=== PATIENT | female | born 1990 | race Caucasian/White ===

== ENCOUNTER 2020-08-13 17:00 | Emergency (ER) | payer OTHER ==
[~2020-08-13] VITALS: Ht 170.2 cm; Wt 68.2 kg
[2020-08-13 17:18] VITALS: BP 140/87
--- NOTE | 2020-08-13 17:29 | PHYS DOC ---
Past History Past Medical History: Anxiety, Depression Past Surgical History: No Surgical History Alcohol Use: None Adult General Chief Complaint Chief Complaint: CHEST PAIN HPI HPI Patient is a 29-year-old female with past medical history of anxiety and depression presents for chest pain. Onset was this morning while at rest shortly after waking up. It is focal to left border of the sternum over fifth rib and exquisitely tender to palpation. It has been ongoing all day. Nothing known makes better, certain movements and deep breaths in and out make worse. Pain is sharp without radiation and with palpation is 10 out of 10 in severity. Patient denies any other associated symptoms. Patient denies any fever, COVID- 19 contact, hemoptysis, shortness of breath, recent long distance travel, exogenous estrogen use, prolonged sedentary state, history of blood clot and/or DVT, is never passed out while playing sports, negative family history for cardiac abnormalities, is not a smoker Review of Systems Review of Systems Fourteen body systems of review of systems have been reviewed. See HPI for pertinent positives and negative responses, other barrera all other systems are negative, non-pertinent or non-contributory Allergies Allergies Allergies Coded Allergies Type Severity Reaction Last Updated Verified No Known Drug Allergies 08/13/20 No Physical Exam Physical Exam Constitutional: Well developed, well nourished, no acute distress, non-toxic appearance. HENT: Normocephalic, atraumatic, bilateral external ears normal, oropharynx moist, no oral exudates, nose normal. Eyes: PERRLA, EOMI, conjunctiva normal, no discharge. Neck: Normal range of motion, no tenderness, supple, no stridor. Cardiovascular: Heart rate regular, sinus rhythm, no murmurs rubs or gallops. Attachment of fifth rib to sternal border painful to palpation without any palpable abnormalities, reproducible pain which is same pain prompting her visit today Lungs & Thorax: Bilateral breath sounds clear to auscultation Abdomen: Bowel sounds normal, soft, no tenderness, no masses, no pulsatile masses. Nonsurgical abdomen, no peritoneal signs Skin: Warm, dry, no erythema, no rash. Back: No tenderness, no CVA tenderness. Extremities: No tenderness, no cyanosis, no clubbing, ROM intact, no edema. Neurologic: Alert and oriented X 3, grossly normal motor & sensory function, no focal deficits noted. Psychologic: Affect normal, judgement normal, mood normal. Current Patient Data Vital Signs Vital Signs Date Time Temp Pulse Resp B/P (MAP) Pulse Ox O2 Delivery O2 Flow Rate FiO2 08/13/20 17:18 97.8 102 16 140/87 (104) 100 Room Air EKG EKG EKG ordered and interpreted by myself at 1732 hrs. as sinus rhythm at 78 bpm, unremarkable intervals, no axis deviation, no ischemic findings, no STEMI Radiology/Procedures Radiology/Procedures [] Heart Score HEART Score for Chest Pain: HEART Score for Chest Pain Response (Comments) Value History Slighlty/Non-Suspicious 0 ECG Normal 0 Age < 45 0 Risk Factors No Risk Factors 0 Total 0 Risk Factors: Risk Factors: DM, Current or recent (<one month) smoker, HTN, HLP, family history of CAD, obesity. Risk Scores: Risk Factors: DM, Current or recent (<one month) smoker, HTN, HLP, family history of CAD, obesity. Course & Med Decision Making Course & Med Decision Making After thorough history and physical examination and EKG, I feel patient is low risk for any concerning emergent and/or surgical abnormalities I discussed most likely diagnosis of musculoskeletal chest pain which is likely costochondritis. Patient was given 500 mg of naproxen, she has taken this in the past and tolerated it well without issues Patient does not have PCP in local area, I discussed with her the importance of establishing with someone locally for continuity of care in outpatient setting. She was provided with resource sheet for her to establish I advised continued supportive care consisting of prescribed Naprosyn and heating pad for 15 minutes 4 times daily. I advised there might be further cardiovascular work-up that could be performed in outpatient setting but at present and current ER, no indication for further management Strict return precautions discussed with good understanding by patient, all questions and concerns addressed prior to ER departure in stable condition Dragon Disclaimer Dragon Disclaimer This electronic medical record was generated, in whole or in part, using a voice recognition dictation system. Departure Departure: Impression: Primary Impression: Musculoskeletal chest pain Disposition: 01 DC HOME SELF CARE/HOMELESS Condition: STABLE Referrals: PCP,NO (PCP) Patient Instructions: Chest Wall Pain, Costochondritis Scripts Naproxen (NAPROSYN) 500 Mg Tablet 1 TAB PO BID for pain for 15 Days, #30 TAB 0 Refills Prov: JUANITO CHURCH DO 08/13/20 JUANITO CHURCH DO Aug 13, 2020 17:29
[2020-08-13] MEDS ORDERED: NAPROXEN 500 MG TABLET PO ONE (17:30)
--- NOTE | 2020-08-13 17:37 | EKG ---
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
[2020-08-13] MEDS ORDERED: NAPR-683 PO (17:43)
== END 2020-08-13 17:46 | disposition home or self-care (01) ==
LOC: ER 17:00
DX: R07.81 Pleurodynia (principal); F41.9 Anxiety disorder, unspecified; F32.9 Major depressive disorder, single episode, unspecified
CPT/HCPCS: 93005; 99283

== ENCOUNTER 2021-07-04 17:00 | Emergency (ER) | payer OTHER ==
[~2021-07-04] VITALS: Ht 160 cm; Wt 85.8 kg
[~2021-07-04 17:00] MED LIST: NAPR-683 PO
[2021-07-04 17:50] VITALS: BP 135/86
--- NOTE | 2021-07-04 18:51 | PHYS DOC ---
Past History Past Medical History: Anxiety, Depression (RANDI CAGLE APRN) Past Surgical History: Other Additional Past Surgical Histo: WISDOM TEETH (RANDI CAGLE APRN) Alcohol Use: Rarely (RANDI CAGLE APRN) General Adult EDM: Chief Complaint: FEVER HPI: HPI: Patient is a 30-year-old female who presents with sore throat, cough, fever since yesterday. Patient states her fever at home has been 101. Patient denies nausea/vomiting/diarrhea. denies exposure to illness. Last dose of Tylenol was last night. Temperature on arrival to ER was 99.9. denies medical history. (RANDI CAGLE APRN) Review of Systems: Review of Systems: ROS At least 10 ROS systems have been reviewed and are negative except as documented in the HPI. General: Negative except as outlined in HPI above. Skin: Negative except as outlined in HPI above. HEENT: Negative except as outlined in HPI above. Neck: Negative except as outlined in HPI above. Respiratory: Negative except as outlined in HPI above.. Cardiovascular: Negative except as outlined in HPI above. Abdomen: Negative except as outlined in HPI above. : Negative except as outlined in HPI above. Back/MSK: Negative except as outlined in HPI above. Neuro: Negative except as outlined in HPI above. Psych: Negative except as outlined in HPI above. (RANDI CAGLE APRN) Current Medications: Current Meds: Current Medications Medications (Trade) Dose Ordered Sig/Nisha Start Time Stop Time Status Last Admin Dose Admin Ibuprofen (Motrin) 600 mg 1X ONCE 07/04/21 19:00 07/04/21 19:01 (RANDI CAGLE APRN) Allergies: Allergies: Allergies Coded Allergies Type Severity Reaction Last Updated Verified No Known Drug Allergies 08/13/20 No (RANDI CAGLE APRN) Physical Exam: PE: Constitutional: Well developed, well nourished, no acute distress, non-toxic appearance. [] HENT: Normocephalic, atraumatic, bilateral external ears normal, oropharynx moist, red, no oral exudates, runny nose Eyes: PERRLA, EOMI, conjunctiva normal, no discharge. [] Neck: Normal range of motion, no tenderness, supple, no stridor. [] Cardiovascular:Heart rate regular rhythm, no murmur [] Lungs & Thorax: Bilateral breath sounds clear to auscultation [] Abdomen: Bowel sounds normal, soft, no tenderness, no masses, no pulsatile masses. [] Skin: Warm, dry, no erythema, no rash. [] Back: No tenderness, no CVA tenderness. [] Extremities: No tenderness, no cyanosis, no clubbing, ROM intact, no edema. [] Neurologic: Alert and oriented X 3, normal motor function, normal sensory functi on, no focal deficits noted. [] Psychologic: Affect normal, judgement normal, mood normal. [] (RANDI CAGLE APRN) Current Patient Data: Vital Signs: Vital Signs Date Time Temp Pulse Resp B/P (MAP) Pulse Ox O2 Delivery O2 Flow Rate FiO2 07/04/21 17:50 99.7 120 20 135/86 (102) 96 Room Air (RANDI CAGLE APRN) EKG: EKG: [] (RANDI CAGLE APRN) Radiology/Procedures: Radiology/Procedures: [] (RANDI CAGLE APRN) Heart Score: C/O Chest Pain: No Risk Factors: Risk Factors: DM, Current or recent (<one month) smoker, HTN, HLP, family history of CAD, obesity. Risk Scores: Score 0 - 3: 2.5% MACE over next 6 weeks - Discharge Home Score 4 - 6: 20.3% MACE over next 6 weeks - Admit for Clinical Observation Score 7 - 10: 72.7% MACE over next 6 weeks - Early Invasive Strategies (RANDI CAGLE APRN) Course & Med Decision Making: Course & Med Decision Making Pertinent Labs and Imaging studies reviewed. (See chart for details) [] 30-year-old female presents with sore throat, cough and fever. Temp on arrival was 99.9. Patient given Motrin. Patient tested for flu, Covid, rapid strep. Patient states that both her daughters have the same symptoms which started yesterday as well. Patient states she has been vaccinated for Covid. Strep and Influenza are both negative. Discussed results with patient. Discussed alternating between Tylenol and ibuprofen at home for fever and body aches. Advised patient to quarantine. Discussed 24 to 48 hours for Covid results. Patient states that she understands discharge instructions. Patient is hemodynamically stable upon disposition. (RANDI CAGLE APRN) Course & Med Decision Making I was the Attending physician on the above date of service of this patient. This patient was evaluated, examined, treated, and dispositioned from the emergency department by the mid-level practitioner. Although I was working at the time , no assistance was requested. Electronically signed, Juanito Church DO (JUANITO CHURCH DO) Maru Disclaimer: Maru Disclaimer: This electronic medical record was generated, in whole or in part, using a voice recognition dictation system. (RANDI CAGLE APRN) Departure Departure: Impression: Primary Impression: Fever Qualified Codes: R50.9 - Fever, unspecified Additional Impression: Person under investigation for COVID-19 Disposition: HOME / SELF CARE / HOMELESS Condition: STABLE Referrals: PCP,ERIC (PCP) Patient Instructions: Fever Additional Instructions: You are seen in the emergency room for fever, sore throat, cough. Make sure to alternate between ibuprofen and Tylenol for fever and chills. You need to quarantine until you receive your Covid results which could take 24 to 48 hours. Follow-up with your PCP on Tuesday if your symptoms are not improving. Return emergency room with worsening symptoms or concerns. EMERGENCY DEPARTMENT GENERAL DISCHARGE INSTRUCTIONS Thank you for coming to [facility] (ED) today and trusting us with you care. We trust that you had a positivie experience in our Emergency Department. If you wish to speak to the department management, you may call the director at [phone]. YOUR FOLLOW UP INSTRUCTIONS ARE FOLLOWS: 1. Do you have a private Doctor? If you do not have a private doctor, please ask for a resource list of physicians or clinics that may be able to assist you with follow up care. 2. The Emergency Physician has interpreted your x-rays. The X-Ray specialist will also review them. If there is a change in the findings, you will be notified in 48 hours when at all possible. 3. A lab test or culture has been done, your results will be reviewed and you will be notified if you need a change in treatment. ADDITIONAL INSTRUCTIONS AND INFORMATION: 1. Your care today has been supervised by a physician who is specially trained in emergency care. Many problems require more than one evaluation for a complete diagnosis and treatment. We recommend that you schedule your follow up appointment as recommended to ensure complete treatment of you illness or injury. If you are unable to obtain follow up care and continue to have a problem, or if your condition worsens, we recommend that you return to the ED. 2. We are not able to safely determine your condition over the phone nor are we able to give sound medical advice over the phone. For these safety reasons, if you call for medical advice we will ask you to come to the ED for further evaluation. 3. If you have any questions regarding these discharge instructions please call the ED at [phone]. SAFETY INFORMATION: In the interest of safety, wellness, and injury prevention; we encourage you to wear your sealbelt, if you smoke; quite smoking, and we encourage family to use a protective helmet for bicycling and other sporting events that present an increased risk for head injury. IF YOUR SYMPTOMS WORSEN OR NEW SYMPTOMS DEVELOP, OR YOU HAVE CONCERNS ABOUT YOUR CONDITION; OR IF YOUR CONDITION WORSENS WHILE YOU ARE WAITING FOR YOUR FOLLOW UP [facility]UM[facility] OINTMENT; EITHER CONTACT YOUR PRIMARY CARE DOCTOR, THE PHYSICIAN WHOSE NAME AND NUMBER YOU WERE GIVEN, OR RETURN TO THE ED IMMEDIATELY. You have been tested for or diagnosed with COVID-19. It is an infection caused by a new type of coronavirus. COVID-19 will cause cold-like or mild flu symptoms in most. It can cause more severe symptoms like problems breathing in some. There is no treatment for COVID-19. The body will clear the infection over time. Self-care will help to ease discomfort. Steps to Take: Self-Care Rest as needed. Healthy habits may help you feel better. Steps include: Choose healthy foods including fruits and vegetables. Drink water throughout the day. Get plenty of sleep each night. If you smoke, try to quit. It may ease breathing. Avoid alcohol. Keep Others Healthy The virus can spread to others. Droplets are released every time you sneeze or cough. The droplets can get into the mouth, nose, or eyes of people near you and lead to infection. To lower the chances of spreading COVID-19 to others: Stay at home until your doctor has said it is safe to leave. If you tested positive this will mean staying isolated until both of the following are true: At least 7 days have passed since the start of illness. You are free of fever for at least 72 hours without the use of medicine. During this time: - Avoid public areas, events, or transportation. Do not return to work or school until your doctor has said it is safe to do so. - Call ahead if you need to go to a medical center. Let them know you may have COVID-19. It will help them guide you where to go. They may also ask you to wear a facemask when you come to the office. - If you call for emergency medical services, let them know you may have COVID- 19. While at home: - Try to avoid close contact with others. Stay about 6 feet away. - If possible, spend most of your time in a separate room from others. - Use a face mask if you will be in close contact with others such as sharing a room or vehicle. - Have someone wipe down common surfaces in the home. Use household cray fishing hand every day on areas like doorknobs, counters, or sinks. - Cough or sneeze into a tissue. Throw the tissue away right after use. If a tissue is not available, cough or sneeze into your elbow. - Wash your hands often. Wash them after sneezing or coughing. Use soap and water and wash for at least 20 seconds. Alcohol based hand screen cleaner can be used if soap and water is not available. - Do not prepare food for others. Avoid sharing personal items like forks, s poons, or toothbrushes. - Avoid close contact with pets while you are sick. There is no evidence of the virus passing to pets. This is a safety step until more is known about this virus. Isolation can be frustrating. Social interaction can help. Keep in touch with friends and family through phone and tech options. You can still interact with others in your home, just keep a safe distance of about 6 feet. Follow-up: Your doctors office will check in with you to see if there are any changes in your health. You may be asked to keep track of symptoms to share with them. They will also let you know when you are clear to be in public again. Problems to Look Out For: Contact your doctor if your recovery is not going as you expect. Get emergency care if you have problems such as: - Trouble breathing - Nonstop chest pain or pressure - Changes in awareness, confusion, or problems waking - Lips or face have bluish color - Worsening of symptoms If you think you have an emergency, call for emergency medical services right away. As taken from [facility] RANDI CAGLE APRN Jul 04, 2021 18:51 JUANITO CHURCH DO Jul 05, 2021 20:06
[2021-07-04] MEDS ORDERED: IBUPROFEN 600 MG TABLET. PO ONE (19:00)
[2021-07-04 19:54] LABS: INFLUENZA A PATIENT NEGATIVE (NEGATIVE); INFLUENZA B PATIENT NEGATIVE (NEGATIVE)
== END 2021-07-04 20:30 | disposition home or self-care (01) ==
LOC: ER 17:00
DX: J02.9 Acute pharyngitis, unspecified (principal); R50.9 Fever, unspecified; R05.9 Cough, unspecified; Z20.822 Contact with and (suspected) exposure to COVID-19
CPT/HCPCS: 87070; 87804; 87880; 99283; C9803; U0003